=== PATIENT | male | born 1955 | race Caucasian/White ===

== ENCOUNTER 2017-08-01 05:21 | Emergency (ER) | payer MEDICAID ==
[~2017-08-01] VITALS: Ht 177.8 cm; Wt 93.7 kg
[~2017-08-01 05:21] MED LIST: NORCO
[2017-08-01] MEDS ORDERED: IBUPROFEN 800MG TABLET PO ONE (08:15)
[2017-08-01 08:54] VITALS: BP 120/84
== END 2017-08-01 08:57 | disposition home or self-care (01) ==
LOC: ER 05:33
DX: M54.5 Low back pain (principal); M54.2 Cervicalgia; V89.2XXA Person injured in unspecified motor-vehicle accident, traffic, initial encounter; Y93.89 Activity, other specified; Y92.89 Other specified places as the place of occurrence of the external cause; Y99.8 Other external cause status
CPT/HCPCS: 99283

== ENCOUNTER 2018-11-14 21:25 | Emergency (ER) | payer MEDICAID ==
[~2018-11-14] VITALS: Ht 175.3 cm; Wt 97.6 kg
[2018-11-14 23:29] VITALS: BP 137/91
== END 2018-11-14 23:32 | disposition home or self-care (01) ==
LOC: ER 21:25
DX: R05 Cough (principal)
CPT/HCPCS: 71045; 99283

== ENCOUNTER 2020-07-23 19:08 | Emergency (ER) | payer MEDICAID ==
[~2020-07-23] VITALS: Ht 177.8 cm; Wt 104.0 kg
[2020-07-23 20:53] VITALS: BP 116/89
== END 2020-07-23 20:54 | disposition home or self-care (01) ==
LOC: ER 19:08
DX: R06.02 Shortness of breath (principal)
CPT/HCPCS: 71045; 99283

== ENCOUNTER 2021-09-17 06:40 | Emergency (ER) | payer MEDICAID, MEDICARE ==
[~2021-09-17] VITALS: Ht 175.3 cm; Wt 91.0 kg
[2021-09-17] MEDS ORDERED: LORAZEPAM 0.5MG TABLET PO ONE (07:30)
[2021-09-17] MEDS ORDERED: KETOROLAC 60MG/2ML VIAL IM ONE (07:30)
[2021-09-17] MEDS ORDERED: LORA-249 MT (09:37)
[2021-09-17] MEDS ORDERED: IBUP-2029 MT ×2 (09:37→09:38)
[2021-09-17 10:00] VITALS: BP 128/97
== END 2021-09-17 10:01 | disposition home or self-care (01) ==
LOC: ER 06:40
DX: M54.2 Cervicalgia (principal); M47.812 Spondylosis without myelopathy or radiculopathy, cervical region
CPT/HCPCS: 72040; 96372; 99283; J1885

== ENCOUNTER 2024-12-29 10:53 | Emergency (ER) | payer MEDICARE, MEDICAID ==
[~2024-12-29] VITALS: Ht 175.3 cm; Wt 90.0 kg
[~2024-12-29 10:53] MED LIST changes: +IBUP-2029 MT; +LORA-249 MT
[2024-12-29 11:01] VITALS: O2SAT 100
[2024-12-29 12:57] VITALS: BP 114/62; PULSE 75; RESP 19; TEMP 37; O2SAT 99
== END 2024-12-29 12:58 | disposition home or self-care (01) ==
LOC: ER 10:53
DX: A15.8 Other respiratory tuberculosis (principal); M19.90 Unspecified osteoarthritis, unspecified site; Z11.1 Encounter for screening for respiratory tuberculosis; Z87.891 Personal history of nicotine dependence
CPT/HCPCS: 71045; 99283